=== PATIENT | male | born 1990 | race Hispanic/Latino ===

== ENCOUNTER 2020-10-12 15:30 | Emergency (ER) | payer BC, OTHER | END 2020-10-12 17:01 | disposition home or self-care (01) | LOC: ERS 15:30 | DX: S60.852A Superficial foreign body of left wrist, initial encounter (principal); W45.8XXA Other foreign body or object entering through skin, initial encounter ==

== ENCOUNTER 2020-11-17 14:07 | Outpatient (CLI) | payer BC ==
[2020-11-17 16:48] LABS: Hemoglobin 13.5 g/dL (13.5-17.5); Mean Corpuscular HGB CONC 31.6 g/dL (32.0-36.0); Mean Corpuscular Hemoglobin 27.1 pg (27.0-33.0); Mean Corpuscular Volume 85.7 fl (81.2-95.1); Mean Platelet Volume 10.7 fl (7.4-10.4); Platelet Count 307 10x3/uL (150-450); Red Blood Cell (RBC) Count 4.98 10x6/uL (4.32-5.72); White Blood Cell (WBC) Count 8.7 10x3/uL (3.5-10.5)
== END 2020-11-17 14:08 | disposition home or self-care (01) ==
LOC: LABBT 14:07
PROVIDERS: ATTEND Orthopaedic Surgery Hand Surgery
DX: Z01.812 Encounter for preprocedural laboratory examination (principal); M77.8 Other enthesopathies, not elsewhere classified
CPT/HCPCS: 85027

== ENCOUNTER 2020-11-20 11:47 | Day surgery (SDC) | payer OTHER ==
[2020-11-18 15:25] VITALS: BMI 34.1
[2020-11-20] MEDS ORDERED: Bupivacaine PF 0.5% 30 ML VIAL ONE (16:18)
[2020-11-20] MEDS ORDERED: Bacitracin Zinc Ointment 30 gm TUBE ONE (16:19)
[2020-11-20] MEDS ORDERED: Thrombin 5000 UNITS/5 ML VIAL ONE (16:19)
[2020-11-20] MEDS ORDERED: Sodium Chloride 0.9% 0 ML ONE (16:19)
[2020-11-20] MEDS ORDERED: Fentanyl 100 MCG/2 ML VIAL ONE ×3 (17:04→18:49)
[2020-11-20] MEDS ORDERED: Dexamethasone 20 MG/5 ML VIAL ONE (17:23)
[2020-11-20] MEDS ORDERED: PROPOFOL 200 MG/20 ML VIAL ONE (17:23)
[2020-11-20] MEDS ORDERED: Ondansetron PF 4 MG/2 ML Vial ONE (17:23)
[2020-11-20] MEDS ORDERED: Lidocaine 1% PF 5 ML VIAL ONE (17:23)
[2020-11-20] MEDS ORDERED: Ketorolac Tromethamine 30 MG/ML VIAL ONE (18:28)
== END 2020-11-20 19:35 | disposition home or self-care (01) ==
LOC: SDC 11:47
PROVIDERS: ATTEND Orthopaedic Surgery Hand Surgery
PROC: 0JCF0ZZ Extirpation of Matter from Left Upper Arm Subcutaneous Tissue and Fascia, Open Approach (ICD-10-PCS; principal; 2020-11-20)
PROC: 01N60ZZ Release Radial Nerve, Open Approach (ICD-10-PCS; 2020-11-20)
DX: S60.852A Superficial foreign body of left wrist, initial encounter (principal); M77.8 Other enthesopathies, not elsewhere classified; X58.XXXA Exposure to other specified factors, initial encounter; Y99.0 Civilian activity done for income or pay
CPT/HCPCS: 76000; J0690; J1100; J1885; J2405; J2704; J3010; J3490; S0020

== ENCOUNTER 2021-03-19 07:39 | Outpatient (CLI) | payer BC | END 2021-03-19 07:40 | disposition home or self-care (01) | LOC: BICULT 07:39 | PROVIDERS: ATTEND Student in an Organized Health Care Education/Training Program | DX: R10.12 Left upper quadrant pain (principal) | CPT/HCPCS: 76700 ==

== ENCOUNTER 2021-07-27 14:27 | Emergency (ER) | payer BC ==
[2021-07-27] MEDS ORDERED: Metoclopramide HCl 10 MG TAB ONE (19:57)
[2021-07-27] MEDS ORDERED: Ketorolac Tromethamine 30 MG/ML VIAL ONE (19:57)
== END 2021-07-27 21:30 | disposition home or self-care (01) ==
LOC: ERS 14:27
DX: G43.909 Migraine, unspecified, not intractable, without status migrainosus (principal); B34.9 Viral infection, unspecified
CPT/HCPCS: 96372; 99283; J1885

== ENCOUNTER 2022-01-30 22:08 | Emergency (ER) | payer BC, SELFPAY ==
[2022-01-30 23:07] LABS: Bilirubin Negative (Negative); Blood, Urine Negative (Negative); Clarity Clear (Clear); Glucose, Urine (Dipstick) Normal (Negative); Ketone, Urine Negative (Negative); Leukocyte Negative Leu/uL (Negative); Nitrite Negative (Negative); Protein, Urine (Dipstick) Negative (Neg-Trace); Specific Gravity, Urine 1.002 (1.002-1.036); Urobilinogen Normal mg/dL (Less than 2); pH, Urine 6.5 (5.0-9.0)
[2022-01-31] MEDS ORDERED: Diazepam 10 MG/2 ML SYRINGE ONE (00:06)
== END 2022-01-31 00:30 | disposition home or self-care (01) ==
LOC: ERS 22:08
DX: S39.012A Strain of muscle, fascia and tendon of lower back, initial encounter (principal)
CPT/HCPCS: 81003; 96372; 99284; J3360

== ENCOUNTER 2023-07-12 18:32 | Emergency (ER) | payer SELFPAY ==
[2023-07-12] MEDS ORDERED: Adenosine 6 mg (2 mL) VIAL ONE (18:38)
[2023-07-12 18:57] LABS: #Basophils 0.1 thou/uL (0.0-0.2); #Eosinphils 0.3 thou/uL (0.0-0.7); #Neutrophils 5.7 thou/uL (1.40-6.50); %Basophils 0.6 % (0.0-1.0); %Eosinophils 2.7 % (0.0-10.0); %Lymphocytes 27.5 % (21.0-51.0); %Monocytes 10.1 % (0.0-10.0); %Neutrophils 58.6 % (42.0-75.0); Hematocrit 45.5 % (42.0-52.0); Hemoglobin 14.8 g/dL (14.0-18.0); Mean Corpuscular HGB CONC 32.5 g/dL (32.0-36.0); Mean Corpuscular Hemoglobin 27.9 pg (27.0-31.0); Mean Corpuscular Volume 85.7 fl (78.0-98.0); Mean Platelet Volume 10.3 fL (7.4-10.4); Platelet Count 386 10x3/uL (130-400); RBC Distribution Width 13.4 % (11.5-14.5); Red Blood Cell (RBC) Count 5.31 mill/uL (4.70-6.10); White Blood Cell (WBC) Count 9.8 10x3/uL (4.8-10.8)
[2023-07-12 19:23] LABS: Troponin I Less than 0.010 ng/mL (< 0.028)
[2023-07-12 20:17] LABS: ALT (SGPT) 36 U/L (8-55); AST (SGOT) 33 U/L (5-34); Albumin 4.1 g/dL (3.5-5.0); Alkaline Phosphatase 85 U/L (40-110); Anion Gap 11 mmol/L (10-20); BUN (Urea Nitrogen) 11 mg/dL (8.9-20.6); Bilirubin, Total 0.3 mg/dL (0.2-1.2); Calc. Creatinine Clearance 0 mL/min (70-130); Calcium 8.7 mg/dL (7.8-10.44); Carbon Dioxide 26 mmol/L (22-29); Chloride 107 mmol/L (98-107); Estimated GFR 117; Globulin 3.7 g/dL (2.4-3.5); Glucose 58 mg/dL (70-105); Potassium 3.5 mmol/L (3.5-5.1); Protein, Total 7.8 g/dL (6.0-8.3); Sodium 140 mmol/L (136-145)
[2023-07-13 01:10] LABS: Troponin I Less than 0.010 ng/mL (< 0.028)
== END 2023-07-13 02:06 | disposition home or self-care (01) ==
LOC: ERS 18:32
DX: I47.10 Supraventricular tachycardia, unspecified (principal)
CPT/HCPCS: 36415; 36416; 71045; 80053; 84443; 84484; 85025; 85379; 93005; 96374; J0153